=== PATIENT | female | born 1960 | race Caucasian/White ===

== ENCOUNTER 2020-06-02 14:30 | Observation (INO) ==
[2020-06-02] MEDS ORDERED: 0.9 % Sodium Chloride 1,000 ML IVC ONE (14:52)
[2020-06-02 15:12] LABS: Basophils # 0.1 K/mcL (0.0-0.2); Basophils % 0.4 %; Eosinophils # 0.2 K/mcL (0.0-0.6); Eosinophils % 1.1 %; Hematocrit 36.5 % (35.3-44.9); Hemoglobin 12.4 g/dL (11.5-15.4); Immature Granulocytes % 2.8 % (0-4); Lymphocytes # 2.1 K/mcL (0.6-4.6); Lymphocytes % 14.6 %; Mean Corpuscular Hemoglobin 31.3 pg (28.0-33.3); Mean Corpuscular Volume 92.2 fL (83.0-100.0); Mean Platelet Volume 9.8 fL (9.4-12.4); Monocytes # 2.1 K/mcL (0.0-1.3); Monocytes % 14.5 %; Platelet Count 273 K/mcL (140-400); Red Blood Count 3.96 M/mcL (3.82-4.97); Red Cell Distribution Width 13.5 % (11.5-14.5); Segmented Neutrophils % 66.6 %; White Blood Count 14.5 K/mcL (4.3-11.1)
[2020-06-02 15:25] LABS: Neutrophils # 9.7 K/mcL (1.6-8.9)
[2020-06-02] MEDS ORDERED: Isovue-370 500 ML BOTTLE IVP ONE (15:30)
[2020-06-02 15:32] LABS: Alanine Aminotransferase 28 Units/L (7-52); Albumin 3.8 g/dL (3.5-5.7); Alkaline Phosphatase 124 Units/L (34-104); Aspartate Amino Transferase 26 Units/L (13-39); BUN/Creatinine Ratio 18 (6-26); Bilirubin,Total 0.7 mg/dL (0.3-1.0); Blood Urea Nitrogen 13 mg/dL (8-23); Calcium 9.1 mg/dL (8.6-10.3); Carbon Dioxide 28 mEq/L (23-29); Chloride 96 mEq/L (98-107); Globulin 3.8 g/dL (2.4-3.5); Glucose 109 mg/dL (70-105); Osmolality,Calculated 275 (280-300); Sodium 132 mEq/L (136-145); Total Protein 7.6 g/dL (6.4-8.9); eGFR For African Americans > 60 (> 60); eGFR For Non-African Americans > 60 (> 60)
[2020-06-02 15:33] LABS: Troponin I < 0.03 ng/mL (< 0.04)
[2020-06-02 15:46] LABS: Platelet Estimate Normal (Normal)
[2020-06-02 15:47] LABS: Thyroid Stimulating Hormone 0.213 mcIU/mL (0.340-5.600)
[2020-06-02 15:51] LABS: Bilirubin,Urine Negative (Negative); Blood,Urine Trace-intact (Negative); Clarity,Urine Clear (Clear); Color,Urine Yellow (Yellow); Glucose,Urine (UA) Normal (Normal); Ketones,Urine Negative (Negative); Leukocyte Esterase,Urine Trace (Negative); Nitrite,Urine Negative (Negative); PH,Urine 6.5 pH Units (5.0-8.0); Protein,Urine 30 mg/dL (Neg-Trace); Specific Gravity,Urine 1.015 (1.010-1.025); Urobilinogen,Urine Normal (Normal)
[2020-06-02 16:14] LABS: RBC,Urine 0-3 per hpf (0-3); Squamous Epithelial Cell,Urine Few per hpf (None-Few)
[2020-06-02] MEDS ORDERED: levoFLOXacin 750 MG/150 ML 750 MG/150 ML BAG IVPB ONE (16:26)
[2020-06-02] MEDS ORDERED: 0.9 % Sodium Chloride 1,000 ML IVC SCH ×2 (17:15→17:54)
[2020-06-02] MEDS ORDERED: MOM Conc 10 ML UD.LIQ PO PRN ×2 (17:33→18:07)
[2020-06-02] MEDS ORDERED: Ondansetron 4 MG/2 ML VIAL IVP PRN ×2 (17:33→18:07)
[2020-06-02] MEDS ORDERED: Acetaminophen 325 MG TABLET PO PRN ×2 (17:33→18:07)
[2020-06-02] MEDS ORDERED: Mag Hydrox/Al Hydrox/Simeth 30 ML UDC PO PRN ×2 (17:33→18:07)
[2020-06-02] MEDS ORDERED: Naloxone 0.4 MG/ML INJ IVP PRN ×3 (17:33→18:07)
[2020-06-02] MEDS ORDERED: Ondansetron ODT 4 MG TAB.RAPDIS SL PRN ×2 (17:33→18:07)
[2020-06-02] MEDS ORDERED: Metoprolol 100 MG TABLET PO SCH (17:51)
[2020-06-02] MEDS ORDERED: *HR* LORazepam 0.5 MG TABLET PO PRN ×2 (17:51→18:07)
[2020-06-02] MEDS: 0.9 % Sodium Chloride 1,000 ML IVC SCH (18:30)
[2020-06-02] MEDS ORDERED: Nicotine 21 MG PATCH.TD24 TD ONE (20:42)
[2020-06-02] MEDS: Ipratropium/Albuterol Neb 3 ML IH SCH (21:28)
[2020-06-02] MEDS: Budesonide/Formoterol 160/4.5 1 PUFF INH IH SCH (21:32)
[2020-06-02] MEDS ORDERED: Ipratropium/Albuterol Neb 3 ML IH SCH (22:00)
[2020-06-02 23:07] LABS: Adenovirus Not Detected (Not Detect); Bordetella Pertussis Not Detected (Not Detect); Chlamydophila pneumoniae Not Detected (Not Detect); Coronavirus 229E Not Detected (Not Detect); Coronavirus HKU1 Not Detected (Not Detect); Coronavirus NL63 Not Detected (Not Detect); Coronavirus OC43 Not Detected (Not Detect); Human Metapneumovirus Not Detected (Not Detect); Human Rhinovirus/Enterovirus Not Detected (Not Detect); Influenza A Subtype 2009 H1 Not Detected (Not Detect); Influenza B Not Detected (Not Detect); Mycoplasma pneumoniae Not Detected (Not Detect); Parainfluenza Virus 1 Not Detected (Not Detect); Parainfluenza Virus 2 Not Detected (Not Detect); Parainfluenza Virus 3 Not Detected (Not Detect); Parainfluenza Virus 4 Not Detected (Not Detect); Respiratory Syncytial Virus Not Detected (Not Detect)
[2020-06-03] MEDS: 0.9 % Sodium Chloride 1,000 ML IVC SCH ×3 (02:28→17:53)
[2020-06-03] MEDS: Ipratropium/Albuterol Neb 3 ML IH SCH ×4 (04:27→21:56)
[2020-06-03 06:30] LABS: Hematocrit 31.8 % (35.3-44.9); Hemoglobin 10.4 g/dL (11.5-15.4); Mean Corpuscular HGB Conc 32.7 g/dL (31.6-35.5); Mean Corpuscular Hemoglobin 30.6 pg (28.0-33.3); Mean Corpuscular Volume 93.5 fL (83.0-100.0); Mean Platelet Volume 10.1 fL (9.4-12.4); Platelet Count 272 K/mcL (140-400); Red Cell Distribution Width 14.1 % (11.5-14.5); White Blood Count 13.5 K/mcL (4.3-11.1)
[2020-06-03] MEDS: *HR* Enoxaparin 40 MG/0.4 ML SYRINGE SQ SCH (06:41)
[2020-06-03] MEDS: Levothyroxine 25 MCG TABLET PO SCH (06:41)
[2020-06-03 07:50] LABS: Alanine Aminotransferase 21 Units/L (7-52); Albumin 3.1 g/dL (3.5-5.7); Alkaline Phosphatase 111 Units/L (34-104); Aspartate Amino Transferase 22 Units/L (13-39); BUN/Creatinine Ratio 14 (6-26); Bilirubin,Total 0.4 mg/dL (0.3-1.0); Blood Urea Nitrogen 10 mg/dL (8-23); Calcium 8.1 mg/dL (8.6-10.3); Carbon Dioxide 23 mEq/L (23-29); Chloride 106 mEq/L (98-107); Glucose 108 mg/dL (70-105); Osmolality,Calculated 284 (280-300); Phosphorous 2.5 mg/dL (2.7-4.5); Potassium 3.8 mEq/L (3.5-5.1); Sodium 137 mEq/L (136-145); Total Protein 6.1 g/dL (6.4-8.9); eGFR For African Americans > 60 (> 60); eGFR For Non-African Americans > 60 (> 60)
[2020-06-03] MEDS ORDERED: 0.9 % Sodium Chloride 500 ML IV ONE (07:56)
[2020-06-03] MEDS: Budesonide/Formoterol 160/4.5 1 PUFF INH IH SCH ×2 (09:08→21:54)
[2020-06-03] MEDS: predniSONE 20 MG TABLET PO SCH (10:31)
[2020-06-03] MEDS ORDERED: levoFLOXacin 500 MG/100 ML 500 MG/100 ML BAG IVPB SCH (16:00)
[2020-06-03] MEDS: Nicotine 21 MG PATCH.TD24 TD SCH (22:04)
[2020-06-04] MEDS: 0.9 % Sodium Chloride 1,000 ML IVC SCH (02:42)
[2020-06-04] MEDS: Ipratropium/Albuterol Neb 3 ML IH SCH ×2 (05:54→10:18)
[2020-06-04] MEDS: Levothyroxine 25 MCG TABLET PO SCH (05:54)
[2020-06-04] MEDS: *HR* Enoxaparin 40 MG/0.4 ML SYRINGE SQ SCH (05:54)
[2020-06-04 06:01] LABS: Hemoglobin 9.2 g/dL (11.5-15.4); Mean Corpuscular HGB Conc 32.9 g/dL (31.6-35.5); Mean Corpuscular Hemoglobin 30.8 pg (28.0-33.3); Mean Corpuscular Volume 93.6 fL (83.0-100.0); Mean Platelet Volume 9.8 fL (9.4-12.4); Platelet Count 306 K/mcL (140-400); Red Blood Count 2.99 M/mcL (3.82-4.97); Red Cell Distribution Width 14.6 % (11.5-14.5); White Blood Count 14.6 K/mcL (4.3-11.1)
[2020-06-04 06:47] LABS: BUN/Creatinine Ratio 17 (6-26); Blood Urea Nitrogen 11 mg/dL (8-23); Calcium 8.2 mg/dL (8.6-10.3); Carbon Dioxide 25 mEq/L (23-29); Chloride 108 mEq/L (98-107); Glucose 117 mg/dL (70-105); Osmolality,Calculated 286 (280-300); Potassium 4.2 mEq/L (3.5-5.1); Sodium 138 mEq/L (136-145); eGFR For African Americans > 60 (> 60); eGFR For Non-African Americans > 60 (> 60)
[2020-06-04] MEDS: Nicotine 21 MG PATCH.TD24 TD SCH (10:16)
[2020-06-04] MEDS: predniSONE 20 MG TABLET PO SCH (10:16)
[2020-06-04] MEDS: Budesonide/Formoterol 160/4.5 1 PUFF INH IH SCH (10:16)
[2020-06-04] MEDS ORDERED: Ipratropium/Albuterol Neb 3 ML IH PRN (10:22)
[2020-06-04 11:46] VITALS: BP 106/63
[2020-06-04] MEDS ORDERED: levoFLOXacin 750 MG TABLET PO ONE (12:56)
[2020-06-04] MEDS ORDERED: FLU Vac QV 20-21 (6Month+)/PF 0.5 ML SYRINGE IM ONE (13:03)
== END 2020-06-04 14:27 | disposition home or self-care (01) ==
LOC: EMEROOGRE 14:30 → INPGRE 17:33 → INTOOBSV 17:33 → INPGRE 18:05
PROVIDERS: ADMIT Family Medicine; ATTEND Family Medicine